=== PATIENT | female | born 1945 | race Caucasian/White ===

== ENCOUNTER 2017-01-27 14:29 | Inpatient (IN) ==
[2017-01-27] MEDS ORDERED: ASPIRIN PO STA (14:47)
[2017-01-27] MEDS ORDERED: ASPIRIN ONE (14:48)
[2017-01-27 14:56] LABS: MANUAL DIFF NEEDED? NO
[2017-01-27 14:58] LABS: BASO% 0.3 % (0.0-0.8); EOS% 1.6 % (0.0-10.0); HEMATOCRIT 34.9 % (37.0-47.0); HEMOGLOBIN 11.1 g/dL (12.0-16.0); IMM GRAN# 0.01 X1000 (0.0-0.04); IMM GRAN% 0.2 % (0.0-0.5); LYMPH# 1.36 X1000 (1.2-3.4); LYMPH% 22.3 % (20.5-51.1); MCH 29.3 PG (27-31); MCHC 31.8 g/dL (33-37); MCV 92.1 FL (81-99); MONO# 0.62 X1000 (0.11-0.59); MONO% 10.2 % (1.7-9.3); MPV 11.1 FL (7.4-10.4); NEUT% 65.4 % (42.2-75.2); PLT 204 X1000 (130-400); RBC 3.79 XMIL (4.2-5.4)
--- NOTE | 2017-01-27 15:08 | EKG Report ---
Test Performed on : 01/27/2017 2:56:20 PM Test Reason : CP Blood Pressure : / mmHG Vent. Rate : 065 BPM Atrial Rate : 065 BPM P-R Int : 140 ms QRS Dur : 084 ms QT Int : 408 ms P-R-T Axes : 053 047 054 degrees QTc Int : 424 ms Normal sinus rhythm. Normal ECG When compared with ECG of 23-AUG-2012 13:22, No significant change was found Unconfirmed Result
[2017-01-27 15:12] LABS: INR 1.11 (0.86-1.15); PROTIME 14.6 Seconds (12.1-15.5)
[2017-01-27 15:13] LABS: ALBUMIN 4.2 g/dL (3.5-5.0); CALCIUM 8.8 mg/dL (8.8-10.2); MAGNESIUM 2.1 mg/dL (1.5-2.7); POTASSIUM 4.3 mmol/L (3.5-5.1); PTT PL 29.1 Seconds (22.6-43.9); TOTAL BILIRUBIN 0.3 mg/dL (0.20-1.00); TOTAL PROTEIN 6.8 g/dL (6.3-8.3)
--- NOTE | 2017-01-27 15:17 | Diag Imaging Result Doc PS360 ---
EXAM: CHEST-2 VIEWS HISTORY: CP TECHNIQUE: PA and lateral chest COMMENT: The heart size and pulmonary vascularity are within normal limits. Lungs are better expanded than on 08/23/2012. 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 There is generalized spondylosis in the thoracic spine. IMPRESSION: No evidence of acute cardiopulmonary disease. Electronically signed by Chad Mcdonald 01/27/2017 3:15 PM
--- NOTE | 2017-01-27 17:22 | Diag Imaging Result Doc PS360 ---
EXAM: ANGIOGRAM/PULMONARY ARTERIES HISTORY: chest pain similar to prior PE TECHNIQUE: CT of the chest with intravenous contrast COMMENT: There are filling defects and there is apparent oligemia in the right upper lobe pulmonary arteries. There are also filling defects in the right lower lobe and also minimally in the the left lower lobe. Compared to the previous examination of 09/25/2016 this was not present previously. The aorta is unchanged in appearance. There are no pleural effusions. There is no evidence of significant adenopathy. There is a pulmonary nodule in the lingula which has not changed since the previous study. No acute pulmonary parenchymal disease is present. IMPRESSION: Small peripheral pulmonary emboli as described. Otherwise stable since 09/25/2016. Electronically signed by Chad Mcdonald 01/27/2017 5:19 PM
[2017-01-27] MEDS ORDERED: ZOFRAN IV PRN (17:43)
[2017-01-27] MEDS ORDERED: TYLENOL PO PRN (17:43)
[2017-01-27] MEDS ORDERED: LOVENOX 1 MG/KG SUBQ ONE (17:46)
--- NOTE | 2017-01-27 17:48 | PROVIDER DOCUMENTATION ---
This chart was entered by Petra Mcdonald Scribe, acting as scribe for Kristy Wei PA. HPI-Chest Pain - General Chief Complaint: Chest Pain Stated Complaint: EPIGASTRIC PAIN Time Seen by Provider: 01/27/17 15:40 Source: patient Allergies/Adverse Reactions: Patient Allergies Allergy/AdvReac Type Severity Reaction Status Date / Time No Known Allergies Allergy Verified 01/27/17 14:45 Home Medications: Home Medication List Medication Instructions Recorded Confirmed Last Taken Type Lisinopril 20 mg PO DAILY 07/01/12 01/27/17 04/20/15 19:00 History Rosuvastatin Calcium [Crestor] 40 mg PO DAILY 07/01/12 01/27/17 04/20/15 19:00 History Rivaroxaban [Xarelto] 20 mg PO DAILY 04/18/16 01/27/17 Unknown History Citalopram Hydrobromide [Celexa] 40 mg PO DAILY 01/27/17 01/27/17 Unknown History Omeprazole 40 mg PO DAILY 01/27/17 01/27/17 Unknown History - History of Present Illness-CP Nature of Presenting Problem: 71 yo F presents to the ER with complaint of sudden onset of central CP while at rest, no radiation. Pain has now resolved. States last time she had CP she had a PE. Location: reports: central Chest Pain Radiation: reports: no radiation Quality of Pain: reports: sharp Onset/Duration: just prior to arrival Timing: gone now Review of Systems - Adult - REVIEW OF SYSTEMS - ADULT Constitutional: denies: chills, fever Eyes: reports: no symptoms reported Ears, Nose, Mouth & Throat: reports: no symptoms reported Cardiovascular: reports: chest pain. denies: palpitations Respiratory: denies: cough, shortness of breath Gastrointestinal: denies: abdominal pain, diarrhea, nausea, vomiting Genitourinary: reports: no symptoms reported Musculoskeletal: reports: no symptoms reported Integumentary: reports: no symptoms reported Neurological: reports: no symptoms reported Psychiatric: reports: no symptoms reported Endocrine: reports: no symptoms reported Hematologic/Lymphatic: reports: no symptoms reported Allergic/Immunologic: reports: no symptoms reported All Other Systems: Reviewed and Negative Past History - Adult - PAST MEDICAL HISTORY-ADULT Review of Records: reports: Nursing Assessment Review, Medications Reviewed Cardiovascular: reports: blood clots, HTN, hyperlipidemia Respiratory: reports: sleep apnea - PRIOR SURGERIES/PROCEDURES Surgical/Procedure History: reports: hysterectomy, orthopedic (extremity) (knee) - PRIOR HOSPITALIZATIONS Prior Hospitalizations: reports: none - IMMUNIZATION STATUS Childhood Immunizations: See Nurse Assessment Flu Vaccine: See Nurse Assessment Physical Exam-General - PHYSICAL EXAM-ADULT Initial Vital Signs Reviewed: Yes - CONSTITUTIONAL General Appearance: appears well, alert, no apparent distress, anxious - EYES Eyes: PERRL/EOMI, pink conjunctivae - HEAD, EARS, NOSE, MOUTH & THROAT HENMT: normocephalic/atraumatic, moist mucous membranes - NECK Neck: non-tender, full range of motion, supple - RESPIRATORY Respiratory: chest non-tender, lungs clear, normal breath sounds. negative: accessory muscle use, crackles, rales, rhonchi, stridor, wheezing - CARDIOVASCULAR Cardiovascular: regular rate, rhythm. negative: no edema (2+ pitting edema to bilateral LEs) - GASTROINTESTINAL (ABDOMEN) Abdominal Exam: normal bowel sounds, non tender, soft. negative: distended, guarding, rigid, rebound, tenderness, hernia, mass - MUSCULOSKELETAL Back Exam: normal inspection, no CVA tenderness, no vertebral tenderness Extremity: no calf tenderness, normal capillary refill, pedal edema - SKIN Integumentary: normal color, normal turgor, warm/dry - NEUROLOGIC Neurologic: grossly normal, no motor/sensory deficits - PSYCHIATRIC Psych/Mental Status: normal thought content, normal thought process Progress - PLAN OF CARE/RESULTS Progress/Plan/Lab Results: Vital Signs - 8 hr 01/27/17 14:37 01/27/17 14:42 01/27/17 14:45 Pulse Rate 76 74 71 Respiratory Rate 20 17 20 Blood Pressure 157/90 157/90 146/89 O2 Sat by Pulse Oximetry 99 98 01/27/17 15:16 01/27/17 15:30 Pulse Rate 60 59 L Respiratory Rate 20 16 Blood Pressure 131/79 133/71 O2 Sat by Pulse Oximetry 97 98 Laboratory Results - last 24 hr 01/27/17 01/27/17 01/27/17 14:50 14:50 14:50 WBC RBC Hgb Hct MCV MCH MCHC RDW Std Deviation Plt Count MPV Immature Gran % (Auto) Neut % (Auto) Lymph % (Auto) [place] % (Auto) Eos % (Auto) Baso % (Auto) Immature Gran # (Auto) Neut # (Auto) Lymph # (Auto) [place] # (Auto) Eos # (Auto) Baso # (Auto) PT INR APTT (Factor Assay) D-Dimer Sodium 138 Potassium 4.3 Chloride 101 Carbon Dioxide 27 Anion Gap 10 BUN 24 H Creatinine 1.0 H Estimated GFR/1.73 m2 54 BUN/Creatinine Ratio 24 Glucose 102 Calculated Osmolality 280 Calcium 8.8 Magnesium 2.1 Total Bilirubin 0.30 AST 24 ALT 17 Alkaline Phosphatase 65 Creatine Kinase 104 Troponin T < 0.010 Ofr-H-[id number] Pept 84 Total Protein 6.8 Albumin 4.2 Globulin 3.0 Albumin/Globulin Ratio 2.0 01/27/17 01/27/17 14:50 14:50 WBC 6.10 RBC 3.79 L Hgb 11.1 L Hct 34.9 L MCV 92.1 MCH 29.3 MCHC 31.8 L RDW Std Deviation 14.8 H Plt Count 204 MPV 11.1 H Immature Gran % (Auto) 0.2 Neut % (Auto) 65.4 Lymph % (Auto) 22.3 Bowie % (Auto) 10.2 H Eos % (Auto) 1.6 Baso % (Auto) 0.3 Immature Gran # (Auto) 0.01 Neut # (Auto) 3.99 Lymph # (Auto) 1.36 Bowie # (Auto) 0.62 H Eos # (Auto) 0.10 Baso # (Auto) 0.02 PT 14.6 INR 1.11 APTT (Factor Assay) 29.1 D-Dimer 0.52 H Sodium Potassium Chloride Carbon Dioxide Anion Gap BUN Creatinine Estimated GFR/1.73 m2 BUN/Creatinine Ratio Glucose Calculated Osmolality Calcium Magnesium Total Bilirubin AST ALT Alkaline Phosphatase Creatine Kinase Troponin T [id number]-[id number] Pept Total Protein Albumin Globulin Albumin/Globulin Ratio Orders Category Date Time Status Cardiac Monitoring DIRECTED Care 01/27/17 14:47 Active Oxygen Therapy- ED Nursing DIRECTED Care 01/27/17 14:47 Active Saline Loc NOW Care 01/27/17 14:47 Active ANGIOGRAM/PULMONARY ARTERIES [CT] Stat Exams 01/27/17 15:51 Completed CHEST-2 VIEWS [RAD] Stat Exams 01/27/17 14:47 Completed CBC WITH ELECTRONIC DIFF [HEME] Stat Lab 01/27/17 14:50 Completed CK PROFILE [SP CHEM] Stat Lab 01/27/17 14:50 Completed COMPREHENSIVE METABOLIC PANEL [CHEM] Stat Lab 01/27/17 14:[address] D-DIMER PL [COAG] Stat Lab 01/27/17 14:50 Completed MAGNESIUM [CHEM] Stat Lab 01/27/17 14:50 Completed PRO B-NATRIURETIC PEPTIDE Stat Lab 01/27/17 14:50 Completed PROTIME WITH INR PL [COAG] Stat Lab 01/27/17 14:[address] [COAG] Stat Lab 01/27/17 14:50 Completed TROPONIN T Stat Lab 01/27/17 14:50 Completed Aspirin Med 01/27/17 14:48 Discontinued 325 mg .ROUTE .STK-MED ONE Aspirin Med 01/27/17 14:47 Discontinued 325 mg PO STAT STA EKG [EKG] Stat Ther 01/27/17 14:47 Draft Result Diagrams: 01/27/17 14:50 01/27/17 14:50 - EKG 1 Time of EKG reading by physician:: 14:56 EKG Read and Signed by:: Kash Benites EKG Interpretation (*Must complete 3 of following elements*): Normal Rate: 65 Rhythm: normal sinus rhythm [place]: normal QRS: normal [place] Interval: normal ST Wave: normal - CONSULTS/PCP/HOSPITALIST Notification #1 *Consult/PCP/Hospitalist*: [place] Time Discussed: 17:42 (admit with lovenox mg/kg) Consult Disposition: Admit Departure - Departure Date of Disposition Decision: 01/27/17 Time of Disposition Decision: 17:42 DIAGNOSIS: Pulmonary embolism Qualifiers: Pulmonary embolism type: other Chronicity: acute Acute cor pulmonale presence: with acute cor pulmonale Qualified Code(s): I26.09 - Other pulmonary embolism with acute cor pulmonale Disposition: ADMITTED INPATIENT 09 Certified Medical Emergency: Emergent Condition: Stable Referrals and Follow-Ups: Krishna Cash MD [Primary Care Provider] - - Critical Care Note This patient required my direct & personal management of CC.: No Attestation - Physician/ SEJAL Attestation Patient care was provided by Advanced Practice Provider:: Yes Advanced Practice Provider:: Kristy Wei Advanced Practice Provider documentation review:: The Mid-level provider documentation, treatment plan and medical decision making was reviewed by the physician who agrees with all treatment and medical decision making by the MLP. This chart was documented by the indicated scribe, (Petra Mcdonald Scribe) and accurately reflects the services I performed and decisions made by me, Kristy Wei PA, as attested by the provider's signature.
[2017-01-27] MEDS ORDERED: LOVENOX ONE (18:12)
[2017-01-27] MEDS: AMBIEN PO PRN (22:22)
[2017-01-27] MEDS: PERCOCET-5 PO PRN (22:22)
[2017-01-28] MEDS: LOVENOX SUBQ SCH ×2 (06:27→18:40)
[2017-01-28 06:29] LABS: HEMATOCRIT 32.4 % (37.0-47.0); MCH 28.7 PG (27-31); MCHC 30.9 g/dL (33-37); MCV 93.1 FL (81-99); MPV 11.4 FL (7.4-10.4); RBC 3.48 XMIL (4.2-5.4)
[2017-01-28 06:30] LABS: INR 1.09 (0.86-1.15); PROTIME 14.4 Seconds (12.1-15.5)
[2017-01-28 06:33] LABS: ALBUMIN 3.9 g/dL (3.5-5.0); CALCIUM 8.7 mg/dL (8.8-10.2); POTASSIUM 3.8 mmol/L (3.5-5.1); TOTAL BILIRUBIN 0.3 mg/dL (0.20-1.00)
--- NOTE | 2017-01-28 09:16 | PROGRESS NOTE ---
DATE: 01/28/2017 SUBJECTIVE: The patient states that she is feeling better today. She is having less pain on respiration. She denies shortness of breath, cough, or palpitations. OBJECTIVE: Vital Signs: Blood pressure is 135/61, with a heart rate of 61, respirations are 18, temperature is 98.3 degrees oral, with a room air saturations of 97%. Cardiovascular: Regular rate and rhythm. S1 and S2 are appreciated. Pulmonary: Breath sounds are clear with no increased work of breathing noted. Gastrointestinal: Abdomen is soft, nontender, and nondistended with bowel sounds in all 4 quadrants. Extremities: No clubbing, cyanosis, or edema. Pulses are palpable x4. Calves are nontender. ASSESSMENT: 1. Pulmonary embolus in a patient on Xarelto. 2. Hypertension. 3. Gastroesophageal reflux disease. 4. Obstructive sleep apnea. 5. History of prior pulmonary embolus/deep venous thrombosis. PLAN: We will continue with Lovenox 1 mg/kg. We will obtain a lower extremity Doppler. The patient certainly cannot continue Xarelto, having a pulmonary embolus on Xarelto. She did develop a PE while taking. She requested that we call [facility] and get their opinion as she does follow with 1 of the physicians, having appointments every 3 months[address] We will contact Dr. Breanne Helm who is instructional technology coach. Addendum: I discussed with Dr Helm who recommends continuing Lovenox bid on discharge She will contact Dr Tuttle tomorrow for any further recommendations. Dictated by HENNA Ramos for Karl Sampson MD cc: HENNA Ramos MD [facility]
[2017-01-28] MEDS: PRINIVIL PO SCH (09:49)
[2017-01-28] MEDS: CELEXA PO SCH (09:49)
[2017-01-28] MEDS: PRILOSEC PO SCH (09:49)
--- NOTE | 2017-01-28 13:47 | HISTORY AND PHYSICAL ---
CHIEF COMPLAINT: Chest pain. HISTORY OF PRESENT ILLNESS: This is a 71-year-old female with a history of prior DVT who presented to the emergency room having a sudden onset of 10/10 sharp pain to the middle of her chest. She did have some shortness of breath with this. She denied any nausea, vomiting, syncope, or dizziness. On presentation to the emergency room, vital signs were stable with oxygen saturations of 98 to 99% on room air. She did have an elevated D-dimer of 0.52; therefore, a CTA pulmonary was performed which revealed a small peripheral pulmonary emboli in the right upper lobe, right lower lobe, and left lower lobe. They were not present on the August 2016 CT scan. Of note, she was given an aspirin and Lovenox 1 mg/kg subcutaneously and admitted for further evaluation and treatment. Of note, the patient has had a prior DVT and PE and is currently on Xarelto. PAST MEDICAL HISTORY: Pulmonary embolus/DVT, gastroesophageal reflux disease, hypertension, obstructive sleep apnea. PAST SURGICAL HISTORY: Hysterectomy, bilateral knee surgery, and left shoulder surgery. SOCIAL HISTORY: She denies alcohol, tobacco, or illicit drug use. ALLERGIES: No known drug allergies. HOME MEDICATIONS: Omeprazole 40 mg daily, lisinopril 20 mg daily, Celexa 40 mg daily, Crestor 40 mg daily, and Xarelto 20 mg daily. REVIEW OF SYSTEMS: A 14 point review of systems is discussed with patient with pertinent positives stated in HPI. She denies dizziness, syncope, PND, orthopnea, any nausea, vomiting, diarrhea, constipation, black or bloody vomitus, black or bloody stools, hematuria, dysuria, frequency, urgency. PHYSICAL EXAMINATION: GENERAL: This is a 71-year-old female who is sitting in the bed, in no distress. VITAL SIGNS: Blood pressure is 148/60, with a heart rate of 65, respirations are 18, temperature is 98.1 oral, with room air saturations of 98%. CARDIOVASCULAR: Regular rate and rhythm. S1, S2 appreciated. PULMONARY: Breath sounds are clear with no increased work of breathing noted. GASTROINTESTINAL: Abdomen is soft, nontender, nondistended with bowel sounds in all 4 quadrants. EXTREMITIES: No clubbing, cyanosis, or edema. Calves nontender. Pulses are palpable x4. NEUROLOGIC: She is alert and oriented x3. Cranial nerves 2 through 12 grossly intact. DIAGNOSTICS: WBC is 4.78 with a hemoglobin of 11, hematocrit 34.9, and platelets of 204,000. INR is 1.11. D-dimer of 0.52. Sodium is 138, potassium 4.3, BUN is 24, creatinine 1, with a glucose of 102. CTA reveals bilateral pulmonary emboli. ASSESSMENT: 1. Pulmonary embolus in a patient on Xarelto. 2. Hypertension. 3. Gastroesophageal reflux disease. 4. Obstructive sleep apnea. 5. History of prior pulmonary embolus/deep vein thrombosis. PLAN: We will continue with Lovenox 1 mg/kg. We will obtain a lower extremity Doppler. The patient certainly cannot continue Xarelto as she has failed treatment having a pulmonary embolus. At her request, in the morning we will call [facility] and get their opinion on changing anticoagulation as she sees their physicians every 3 months. We will identify her home medications and continue as appropriate. Further treatments pending hospital course. Dictated by HENNA Ramos for Karl Sampson MD cc: HENNA Ramos MD
--- NOTE | 2017-01-28 13:54 | Extremity Venous Study ---
EXAM: Venous U/S Bilateral Legs HISTORY: PE, on Xarelto TECHNIQUE: Compression venous ultrasound of the lower extremities with color Doppler COMMENT: The deep veins of both lower extremities are compressible without evidence of obstruction to color Doppler flow. There is an apparent popliteal cyst on the left containing a shadowing calcification, possibly a synovial osteochondroma. It is possible this is even due to postsurgical changes there are bilateral knee prostheses. IMPRESSION: No evidence of deep venous thrombosis. Small popliteal cyst on the left with calcification. Electronically signed by Chad Mcdonald 01/28/2017 1:52 PM
[2017-01-28] MEDS: PERCOCET-5 PO PRN (22:28)
[2017-01-28] MEDS: AMBIEN PO PRN (22:28)
[2017-01-29] MEDS: PRILOSEC PO SCH (06:13)
[2017-01-29] MEDS: LOVENOX SUBQ SCH (06:14)
[2017-01-29] MEDS: PRINIVIL PO SCH (09:04)
[2017-01-29] MEDS: CELEXA PO SCH (09:04)
[2017-01-29 12:18] VITALS: BP 114/53
--- NOTE | 2017-01-29 18:59 | DISCHARGE SUMMARY ---
ADMISSION DATE: 01/27/2017 DISCHARGE DATE: 01/29/2017 ADMISSION DIAGNOSES: 1. Pulmonary embolus. 2. Hypertension. 3. Gastroesophageal reflux disease. 4. Obstructive sleep apnea. 5. History of pulmonary embolus and deep vein thrombosis. DISCHARGE DIAGNOSES: 1. Pulmonary embolus. 2. Hypertension. 3. Gastroesophageal reflux disease. 4. Obstructive sleep apnea. 5. History of pulmonary embolus and deep vein thrombosis. SUMMARY OF FINDINGS: This is a 71-year-old, female who has a history of a prior DVT, who presented to the emergency room having a sudden onset of 10/10 sharp pain in the middle of her chest. She states she had shortness of breath but denied any nausea, vomiting, syncope or dizziness. She was noted to have a mild elevated D-dimer of 0.52. A CTA of the pulmonary arteries was obtained which revealed a small peripheral pulmonary emboli in the right upper lobe, right lower lobe and left lower lobe. These were not present on the CT scan in August 2016. She was noted to already be on Xarelto 20 mg p.o. daily. We have attempted to call the [facility] and Dr. Helm to discuss changing her anticoagulation but we have not received that return phone call today. So, the attending felt that it was safe to discharge her home on the Xarelto 15 mg b.i.d. We will discontinue the 20. The patient wants to follow up with her Photo Mask Processor, Dr. Tuttle in [place]. She will call his office on January 31, for an appointment to discuss further changes to her anticoagulation at that time. Otherwise it is felt that she can safely be discharged home. DISCHARGE HOME MEDICATIONS: 1. Celexa 40 mg p.o. daily. 2. Lisinopril 20 mg p.o. daily. 3. Omeprazole 40 mg p.o. daily. 4. Crestor 40 mg p.o. daily. 5. We will stop the Xarelto 20 mg daily and change her to Xarelto 15 mg 1 p.o. b.i.d. #60 with 2 refills, and a prescription was given to the patient for this. DISCHARGE INSTRUCTIONS: All discharge instructions have been reviewed with the patient. She verbalizes understanding. TOTAL TIME SPENT ON DISCHARGE: 35 minutes. Dictated by HENNA Jimenes for Karl Sampson MD cc: HENNA Jimenes MD Adnan A. Seljuki, MD John M. Waples, MD
== END 2017-01-29 14:49 | disposition home or self-care (01) ==
LOC: P.ED 14:29 → P.MEDSURG 14:29 → OBSVTOIN 17:59
PROVIDERS: ATTEND Family Medicine